=== PATIENT | female | born 1955 | race Caucasian/White ===

== ENCOUNTER 2018-12-26 11:30 | Day surgery (SDC) | payer OTHER ==
[2018-12-26] MEDS ORDERED: PROPOFOL 40 ML (13:29)
[2018-12-26] MEDS ORDERED: PROPOFOL 80 ML (14:24)
== END 2018-12-26 15:36 | disposition home or self-care (01) ==
LOC: GIL 11:30
DX: R19.4 Change in bowel habit (principal); D12.6 Benign neoplasm of colon, unspecified; K57.30 Diverticulosis of large intestine without perforation or abscess without bleeding; K64.8 Other hemorrhoids; K21.9 Gastro-esophageal reflux disease without esophagitis; I10 Essential (primary) hypertension; E11.9 Type 2 diabetes mellitus without complications; J45.909 Unspecified asthma, uncomplicated
CPT/HCPCS: 43239; 82962; 88305